=== PATIENT | female | born 1970 | race Hispanic/Latino ===

== ENCOUNTER 2016-10-30 11:37 | Emergency (ER) | payer BC ==
[~2016-10-30] VITALS: Ht 154.9 cm; Wt 61.0 kg
[2016-10-30] MEDS ORDERED: LEVOCETIRIZINE D5 MG PO (13:01)
[2016-10-30 13:34] LABS: HEMATOCRIT 43.3 % (36.0-46.0); MCH 30.1 PG (29.0-34.0); MCHC 32.6 G/DL (30.0-36.0); MCV 92.5 FL (83-99); RBC DIS.WIDTH-SD 44.1 % (39-53); RED BLOOD COUNT 4.68 M/uL (3.80-5.20)
[2016-10-30 13:56] LABS: CHLORIDE 106 mEq/L (99-109); SODIUM 139 mEq/L (136-147)
[2016-10-30 13:58] LABS: GLUCOSE 91 mg/dL (70-99)
[2016-10-30 14:00] LABS: ANION GAP 9 MEQ/L (2-14)
[2016-10-30 14:02] LABS: GFR ESTIMATE (CALCULATED) > 59 mL/min/
[2016-10-30 14:03] LABS: UREA NITROGEN (BUN) 11 mg/dL (9-23)
[2016-10-30 14:11] LABS: QUANTITATIVE HCG < 4.0 MIU/ML
[2016-10-30 14:23] LABS: MEAN PLAT.VOLUME 11.5 uM^3 (9.5-12.4); PLATELET COUNT 227 K/uL (156-360)
[2016-10-30 14:36] LABS: INFLUENZA A VIRAL ANTIGEN NEGATIVE; INFLUENZA B VIRAL ANTIGEN NEGATIVE
[2016-10-30 14:52] LABS: ADD MIUA? NO; BILIRUBIN NEGATIVE; BLOOD NEGATIVE; COLOR YELLOW ((YELLOW)); GLUCOSE (STRIP) NEGATIVE; KETONES NEGATIVE; LEUKOCYTES NEGATIVE; NITRITE NEGATIVE; PROTEIN (STRIP) NEGATIVE; UROBILINOGEN 0.2 MG/DL (0.2-1.0)
[2016-10-30 17:19] VITALS: BP 124/68
== END 2016-10-30 17:21 | disposition home or self-care (01) ==
LOC: RME 11:37 → EME 11:37 → RME 17:21
PROVIDERS: Physician Assistant
DX: B34.9 Viral infection, unspecified (principal); R53.1 Weakness
CPT/HCPCS: 71020; 80048; 81003; 84702; 85027; 87502; 87651 90; 99281; 99284